=== PATIENT | male | born 1930 | race Caucasian/White ===

== ENCOUNTER 2019-01-01 03:38 | Emergency (ER) | payer OTHER ==
--- OUTSIDE RECORDS SUMMARY | 2019-01-01 03:40 | XMS REPORT | Clinical Summary ---
:1930 Author Organization [facility] Address [address] [place] [address] Care Team Providers Name Role Phone Donavon Trujillo MD Primary Care Provider Allergies Active Allergy Reactions Severity Noted Date Comments Zolpidem 10/05/2016 couldn't wake up for 18 hrs. Ciprofloxacin Rash Low 10/05/2016 Levofloxacin Rash Low 10/05/2016 Medications Medication Sig Dispensed Refills Start Date End Date Status nabumetone (RELAFEN) Take 750 mg by 0 Active 750 MG tablet mouth 2 (two) times a day. traMADol (ULTRAM) 50 Take 50 mg by mouth 0 Active mg tablet every 8 (eight) hours as needed for moderate pain. aspirin 325 MG tablet Take 325 mg by 0 Active mouth nightly. VIT Take 1 capsule by 0 Active C/E/ZN/COPPR/LUTEIN/Z mouth 2 (two) times EAXAN (PRESERVISION a day. AREDS 2 ORAL) melatonin tablet Take 3 mg by mouth 0 Active nightly. Active Problems Problem Noted Date DVT, lower extremity 10/07/2016 Dyspnea 10/05/2016 Hypertension 10/05/2016 Lymphoma 10/05/2016 Anemia of chronic disease 10/05/2016 Bilateral lower extremity edema 10/05/2016 Volume overload 10/05/2016 Anasarca 10/05/2016 Social History Tobacco Use Types Packs/Day Years Used Date Never Smoker Alcohol Use Drinks/Week oz/Week Comments No Sex Assigned at Date Recorded Not on file Job Start Date Occupation Industry Not on file Not on file Not on file Travel History Travel Start Travel End No recent travel history available. Last Filed Vital Signs Not on file Plan of Treatment Health Maintenance Due Date Last Done Comments SHINGLES VACCINES (1 of 2) 1981 PNEUMOCOCCAL-13 02/04/1996 INFLUENZA VACCINE 06/20/2018 09/29/2015 PNEUMOCOCCAL POLYSACCHARIDE VACCINE AGE 65 AND OVER Completed 09/29/2015 Results Not on fileafter 12/31/2017 Insurance Payer Benefit Plan / Group Subscriber ID Type Phone Address MEDICARE MEDICARE PART A AND B xxxxxxxxxx Medicare [place], [place] AETNA AETNA HMO,POS,EPO, MC/EC xxxxxxxxx HMO Advance Directives Patient has advance care planning documents on file. For more information, please contact:Wilmer [id number] [place] [address]
[2019-01-01] MEDS ORDERED: ONDANSETRON 4 MG/2 ML VIAL ONE (04:49)
[2019-01-01] MEDS ORDERED: FENTANYL CITR 100 MCG/2 ML ONE (04:49)
[2019-01-01] MEDS ORDERED: NA CHLORIDE 0.9% 500 ML ONE (04:49)
[2019-01-01] MEDS ORDERED: NA CHLORIDE 0.9% 1,000 ML ONE (04:51)
[2019-01-01] MEDS ORDERED: NA CHLORIDE 0.9% 50 ML IV ONE (04:51)
[2019-01-01] MEDS ORDERED: CEFTRIAXONE 1000 MG/VIAL ONE (04:51)
[2019-01-01 05:23] LABS: Absolute Lymphocytes (CBC) 0.9 K/uL (0.7-4.9); Absolute Monocytes 0.7 K/uL (0.1-1.3); Absolute Neutrophil 2.8 K/uL (1.8-8.0); Basophils % 0.8 % (0-1.3); Eosinophils % 4.7 % (0-4.4); Hematocrit 35.7 % (39.6-49.0); Lymphocytes % 19.8 % (15.3-44.8); MPV 8.9 fL (7.6-11.3); Monocytes % 15.5 % (3.3-12.3); RBC Red Blood Cell Count 3.96 M/uL (4.33-5.43)
[2019-01-01 05:54] LABS: Albumin 2.9 g/dL (3.4-5.0); Bilirubin Direct 0.3 mg/dL (0-0.2); Bilirubin Total 0.9 mg/dL (0.2-1.0); Potassium 3.3 mmol/L (3.5-5.1); Protein, Total 5.7 g/dL (6.4-8.2)
[2019-01-01 06:01] LABS: Blood Morphology Comment NOT SEEN (NOT SEEN); Platelet Estimate ADEQ
--- NOTE | 2019-01-01 06:20 | ER ---
Nurse's Notes [facility] Name: Celso Griffin Age: 88 yrs Sex: Male : 1930 Arrival Date: 01/01/2019 Time: 03:40 Bed 13 Private MD: Donavon Trujillo Diagnosis: Constipation;Diverticulosis of both small and large intestine without perforation or abscess without bleeding;Abdominal tenderness;Hypokalemia Presentation: 01/01 03:45 Presenting complaint: Patient states: right flank pain since yesterday. Transition of cc3 care: patient was not received from another setting of care. Onset of symptoms was December 31, 2018. Risk Assessment: Do you want to hurt yourself or someone else? Patient reports no desire to harm self or others. Initial Sepsis Screen: Does the patient meet any 2 criteria? No. Patient's initial sepsis screen is negative. Does the patient have a suspected source of infection? No. Patient's initial sepsis screen is negative. Care prior to arrival: None. 03:45 Method Of Arrival: Ambulatory cc3 03:45 Acuity: SAMUEL 3 cc3 Triage Assessment: 03:45 General: Appears in no apparent distress. comfortable, Behavior is calm, cooperative, cc3 appropriate for age. Pain: Complains of pain in right flank Pain currently is 2 out of 10 on a pain scale. Quality of pain is described as aching. EENT: No signs and/or symptoms were reported regarding the EENT system. Neuro: Level of Consciousness is awake, alert, obeys commands, Oriented to person, place, time, situation, Appropriate for age. Cardiovascular: Denies chest pain, Patient's skin is warm and dry. Respiratory: Airway is patent Respiratory effort is even, unlabored, Respiratory pattern is regular, symmetrical. GI: Abdomen is round non-distended. : No signs and/or symptoms were reported regarding the genitourinary system. Derm: No signs and/or symptoms reported regarding the dermatologic system. Musculoskeletal: Circulation, motion, and sensation intact. Range of motion: intact in all extremities. Historical: - Allergies: 03:45 ambien; cc3 03:45 Cipro PO; cc3 03:45 Levaquin; cc3 - Home Meds: 03:45 folic acid 1 mg Oral tab 1 tab once daily [Active]; furosemide 40 mg Oral tab 2 times cc3 per day [Active]; levothyroxine 50 mcg tab 1 tab once daily [Active]; melatonin 10 mg Oral tab [Active]; metoprolol tartrate 25 mg Oral tab 1 tab once daily [Active]; metoprolol tartrate 25 mg Oral tab take 1/2 tab in the morning and 1 tab in the evening [Active]; potassium chloride 20 mEq Oral TbER 1 tab Every other day [Active]; SYMBICORT COMBIVENT 160-4.5 [Active]; tramadol 50 mg Oral tab 1 tab every 4-6 hours for Pain [Active]; Tylenol #3 Oral 1 tab every 4-6 hours for NEEDED PAIN [Active]; valsartan 320 mg Oral tab 1 tab once daily [Active]; VITEYE [Active]; Xarelto 20 mg Oral tab 1 tab once daily [Active]; - PMHx: 03:45 blood clots; Hypertension; Hypothyroidism; LYMPHOMA; cc3 - PSHx: 03:45 right knee replacement; Tonsillectomy; cc3 - Immunization history:: Adult Immunizations up to date. - Social history:: Smoking status: Patient/guardian denies using tobacco, never smoked. - Ebola Screening: : No symptoms or risks identified at this time. - Family history:: not pertinent. Screenin:45 Abuse screen: Denies threats or abuse. Denies injuries from another. Nutritional cc3 screening: No deficits noted. Tuberculosis screening: No symptoms or risk factors identified. Fall Risk Ambulatory Aid- None/Bed Rest/Nurse Assist (0 pts). Gait- Normal/Bed Rest/Wheelchair (0 pts) Mental Status- Oriented to own ability (0 pts). Assessment: 03:45 GI: Bowel sounds present X 4 quads. Abd is soft and non tender. cc3 04:24 Reassessment: Patient appears in no apparent distress at this time. Patient and/or cc3 family updated on plan of care and expected duration. Pain level reassessed. Patient is alert, oriented x 3, equal unlabored respirations, skin warm/dry/pink. 05:30 Reassessment: Patient appears in no apparent distress at this time. Patient and/or cc3 family updated on plan of care and expected duration. Pain level reassessed. Patient is alert, oriented x 3, equal unlabored respirations, skin warm/dry/pink. Patient came back from CT scan department, awaiting CT scan result. 06:11 Reassessment: Patient appears in no apparent distress at this time. Patient and/or cc3 family updated on plan of care and expected duration. Pain level reassessed. Patient is alert, oriented x 3, equal unlabored respirations, skin warm/dry/pink. 06:55 Reassessment: Dr. Sanderson discharged the patient home with prescription given. IV cc3 cannula removed and patient left ER vitally stable and ambulatory with his . Vital Signs: 03:45 BP 155 / 75; Pulse 64; Resp 20 S; Temp 98.4(O); Pulse Ox 96% on R/A; Weight 91.63 kg cc3 (R); Height 5 ft. 10 in. (177.80 cm) (R); Pain 2/10; 04:30 BP 147 / 72; Pulse 60; Resp 18 S; Pulse Ox 96% on R/A; cc3 05:30 BP 167 / 79; Pulse 62; Resp 17 S; Pulse Ox 95% on R/A; cc3 06:11 BP 163 / 83; Pulse 62; Resp 16 S; Pulse Ox 95% on R/A; cc3 03:45 Body Mass Index 28.98 (91.63 kg, 177.80 cm) cc3 ED Course: 03:40 Patient arrived in ED. ds1 03:41 Donavon Trujillo MD is Private Physician. ds1 03:45 Ros Bro is Primary Nurse. cc3 03:45 Arm band placed on right wrist. Patient notified of wait time. cc3 03:45 Patient has correct armband on for positive identification. Bed in low position. Call cc3 light in reach. Side rails up X 1. Pulse ox on. NIBP on. 03:56 Jaren Sanderson MD is Attending Physician. corie 04:03 Triage completed. cc3 04:45 Inserted saline lock: 20 gauge in right antecubital area, using aseptic technique. cc3 Blood collected. 05:[address] via stretcher. kw1 05:15 CT completed. Patient tolerated procedure well. Patient moved back from CT. kw1 05:43 CT Stone Protocol In Process Unspecified. EDMS 06:17 Donavon Trujillo MD is Referral Physician. corie 06:17 Juani Pike MD is Referral Physician. corie 06:55 No provider procedures requiring assistance completed. IV discontinued, intact, cc3 bleeding controlled, No redness/swelling at site. Pressure dressing applied. Administered Medications: 04:45 Drug: NS 0.9% 500 ml Route: IV; Rate: bolus; Site: right antecubital; cc3 05:40 Follow up: Response: No adverse reaction; IV Status: Completed infusion; IV Intake: cc3 500ml 04:46 Drug: fentaNYL (PF) 25 mcg Route: IVP; Site: right antecubital; cc3 05:35 Follow up: Response: No adverse reaction; Pain is decreased cc3 05:00 Drug: Zofran 4 mg Route: IVP; Site: right antecubital; cc3 05:35 Follow up: Response: No adverse reaction; Nausea is decreased cc3 05:30 Drug: Rocephin - (cefTRIAXone) 1 grams Route: IVPB; Infused Over: 30 mins; Site: right cc3 antecubital; 06:01 Follow up: Response: No adverse reaction; IV Status: Completed infusion; IV Intake: 62pmkl0 05:50 Drug: NS 0.9% 1000 ml Route: IV; Rate: 125 ml/hr; Site: right antecubital; cc3 06:30 Drug: Potassium Effervescent Tablet 25 mEq Route: PO; cc3 06:39 Follow up: Response: No adverse reaction cc3 Intake: 05:40 IV: 500ml; Total: 500ml. cc3 06:01 IV: 50ml; Total: 550ml. cc3 Outcome: 06:19 Discharge ordered by . [facility] 06:55 Patient left the ED. cc3 06:55 Discharged to home ambulatory, with family. cc3 06:55 Condition: stable 06:55 Discharge instructions given to patient, family, Instructed on discharge instructions, follow up and referral plans. medication usage, Demonstrated understanding of instructions, follow-up care, medications, Prescriptions given X 5 Signatures: Dispatcher [employer] EDJaren Pham MD MD cha Sanford, Demi ds1 Wilhelm, Kimberly kw1 Ros Bro cc3 Corrections: (The following items were deleted from the chart) 05:12 05:11 Patient moved to [place] via wheelchair. kw1 kw1 06:14 05:30 BP 167 / 79; Pulse 62bpm; Resp 17bpm; Spontaneous; Pulse Ox 94% RA; cc3 cc3
--- NOTE | 2019-01-01 06:20 | EDPHYS ---
Physician Documentation [facility] Name: Celso Griffin Age: 88 yrs Sex: Male : 1930 Arrival Date: 01/01/2019 Time: 03:40 Bed 13 Private MD: Donavon Trujillo ED Physician Jaren Sanderson HPI: 01/01 04:26 This 88 yrs old Male presents to ER via Ambulatory with complaints of corie Possible Kidney Stone. 04:26 The patient complains of pain in the right mid back and right low back. The pain corie radiates to the right mid back and right low back. Onset: The symptoms/episode began/occurred 1 day(s) ago. Modifying factors: The symptoms are alleviated by nothing. The patient presents with pain that is acute, with no known mechanism of injury. The symptoms are located in the low back, right mid back and right low back. Onset: The symptoms/episode began/occurred yesterday. Historical: - Allergies: 03:45 ambien; cc3 03:45 Cipro PO; cc3 03:45 Levaquin; cc3 - Home Meds: 03:45 folic acid 1 mg Oral tab 1 tab once daily [Active]; furosemide 40 mg Oral tab 2 times cc3 per day [Active]; levothyroxine 50 mcg tab 1 tab once daily [Active]; melatonin 10 mg Oral tab [Active]; metoprolol tartrate 25 mg Oral tab 1 tab once daily [Active]; metoprolol tartrate 25 mg Oral tab take 1/2 tab in the morning and 1 tab in the evening [Active]; potassium chloride 20 mEq Oral TbER 1 tab Every other day [Active]; SYMBICORT COMBIVENT 160-4.5 [Active]; tramadol 50 mg Oral tab 1 tab every 4-6 hours for Pain [Active]; Tylenol #3 Oral 1 tab every 4-6 hours for NEEDED PAIN [Active]; valsartan 320 mg Oral tab 1 tab once daily [Active]; VITEYE [Active]; Xarelto 20 mg Oral tab 1 tab once daily [Active]; - PMHx: 03:45 blood clots; Hypertension; Hypothyroidism; LYMPHOMA; cc3 - PSHx: 03:45 right knee replacement; Tonsillectomy; cc3 - Immunization history:: Adult Immunizations up to date. - Social history:: Smoking status: Patient/guardian denies using tobacco, never smoked. - Ebola Screening: : No symptoms or risks identified at this time. - Family history:: not pertinent. ROS: 04:26 Constitutional: Negative for fever, chills, and weight loss, Eyes: Negative for injury, corie pain, redness, and discharge, ENT: Negative for injury, pain, and discharge, Neck: Negative for injury, pain, and swelling, Cardiovascular: Negative for chest pain, palpitations, and edema, Respiratory: Negative for shortness of breath, cough, wheezing, and pleuritic chest pain, Abdomen/GI: Negative for abdominal pain, nausea, vomiting, diarrhea, and constipation, : Negative for injury, bleeding, discharge, and swelling, MS/Extremity: Negative for injury and deformity, Skin: Negative for injury, rash, and discoloration, Neuro: Negative for headache, weakness, numbness, tingling, and seizure. 04:26 Back: Positive for pain at rest, radiated pain. Exam: 04:26 Constitutional: This is a well developed, well nourished patient who is awake, alert, corie and in no acute distress. Head/Face: Normocephalic, atraumatic. Eyes: Pupils equal round and reactive to light, extra-ocular motions intact. Lids and lashes normal. Conjunctiva and sclera are non-icteric and not injected. Cornea within normal limits. Periorbital areas with no swelling, redness, or edema. ENT: Nares patent. No nasal discharge, no septal abnormalities noted. Tympanic membranes are normal and external auditory canals are clear. Oropharynx with no redness, swelling, or masses, exudates, or evidence of obstruction, uvula midline. Mucous membranes moist. Neck: Trachea midline, no thyromegaly or masses palpated, and no cervical lymphadenopathy. Supple, full range of motion without nuchal rigidity, or vertebral point tenderness. No Meningismus. Chest/axilla: Normal chest wall appearance and motion. Nontender with no deformity. No lesions are appreciated. Cardiovascular: Regular rate and rhythm with a normal S1 and S2. No gallops, murmurs, or rubs. Normal PMI, no JVD. No pulse deficits. Respiratory: Lungs have equal breath sounds bilaterally, clear to auscultation and percussion. No rales, rhonchi or wheezes noted. No increased work of breathing, no retractions or nasal flaring. Abdomen/GI: Soft, non-tender, with normal bowel sounds. No distension or tympany. No guarding or rebound. No evidence of tenderness throughout. Back: No spinal tenderness. No costovertebral tenderness. Full range of motion. Male : Normal genitalia with no discharge or lesions. Skin: Warm, dry with normal turgor. Normal color with no rashes, no lesions, and no evidence of cellulitis. MS/ Extremity: Pulses equal, no cyanosis. Neurovascular intact. Full, normal range of motion. Neuro: Awake and alert, GCS 15, oriented to person, place, time, and situation. Cranial nerves II-XII grossly intact. Motor strength 5/5 in all extremities. Sensory grossly intact. Cerebellar exam normal. Normal gait. Psych: Awake, alert, with orientation to person, place and time. Behavior, mood, and affect are within normal limits. Vital Signs: 03:45 BP 155 / 75; Pulse 64; Resp 20 S; Temp 98.4(O); Pulse Ox 96% on R/A; Weight 91.63 kg cc3 (R); Height 5 ft. 10 in. (177.80 cm) (R); Pain 2/10; 04:30 BP 147 / 72; Pulse 60; Resp 18 S; Pulse Ox 96% on R/A; cc3 05:30 BP 167 / 79; Pulse 62; Resp 17 S; Pulse Ox 95% on R/A; cc3 06:11 BP 163 / 83; Pulse 62; Resp 16 S; Pulse Ox 95% on R/A; cc3 03:45 Body Mass Index 28.98 (91.63 kg, 177.80 cm) cc3 MDM: 03:56 Patient medically screened. [facility] 04:28 Data reviewed: vital signs, nurses notes, lab test result(s), radiologic studies, CT corie scan. 01/01 04:30 Order name: Basic Metabolic Panel; Complete Time: 06:13 [facility] 01/01 04:30 Order name: CBC with Diff; Complete Time: 06:13 [facility] 01/01 04:30 Order name: Creatinine for Radiology; Complete Time: 06:13 [facility] 01/01 04:30 Order name: Hepatic Function; Complete Time: 06:13 [facility] 01/01 04:30 Order name: Lipase; Complete Time: 06:13 [facility] 01/01 04:30 Order name: Urine Culture [facility] 01/01 04:30 Order name: CT Stone Protocol [facility] 01/01 05:30 Order name: Manual Differential; Complete Time: 06:13 EDMS 01/01 06:05 Order name: Urine Dipstick--Ancillary (enter results) 2 01/01 04:30 Order name: IV Saline Lock; Complete Time: 05:10 [facility] 01/01 04:30 Order name: Labs collected and sent; Complete Time: 05:10 [facility] 01/01 04:30 Order name: Urine Dipstick-Ancillary (obtain specimen); Complete Time: 06:02 [facility] Administered Medications: 04:45 Drug: NS 0.9% 500 ml Route: IV; Rate: bolus; Site: right antecubital; cc3 05:40 Follow up: Response: No adverse reaction; IV Status: Completed infusion; IV Intake: cc3 500ml 04:46 Drug: fentaNYL (PF) 25 mcg Route: IVP; Site: right antecubital; cc3 05:35 Follow up: Response: No adverse reaction; Pain is decreased cc3 05:00 Drug: Zofran 4 mg Route: IVP; Site: right antecubital; cc3 05:35 Follow up: Response: No adverse reaction; Nausea is decreased cc3 05:30 Drug: Rocephin - (cefTRIAXone) 1 grams Route: IVPB; Infused Over: 30 mins; Site: right cc3 antecubital; 06:01 Follow up: Response: No adverse reaction; IV Status: Completed infusion; IV Intake: [id number] 05:50 Drug: NS 0.9% 1000 ml Route: IV; Rate: 125 ml/hr; Site: right antecubital; cc3 06:30 Drug: Potassium Effervescent Tablet 25 mEq Route: PO; cc3 06:39 Follow up: Response: No adverse reaction cc3 Disposition: 01/01/19 06:19 Discharged to Home. Impression: Constipation, Diverticulosis of both small and large intestine without perforation or abscess without bleeding, Abdominal tenderness, Hypokalemia. - Condition is Stable. - Discharge Instructions: Abdominal Pain, Adult, Constipation, Adult, Potassium Content of Foods, Diverticulosis, Kidney Stones, Constipation, Adult, Oemv-dx-Wrbg, Kidney Stones, Heog-ih-Hdkx, Abdominal Pain, Adult, Fzlu-jr-Jajq, Hypokalemia. - Prescriptions for Colace 100 mg Oral Tablet - take 1 tablet by ORAL route every 12 hours; 14 tablet. Zofran 4 mg Oral Tablet - take 1 tablet by ORAL route every 12 hours As needed; 20 tablet. Flomax 0.4 mg Oral Capsule, Sust. Release 24 hr - take 1 capsule by ORAL route once daily 1/2 hour following the same meal each day; 30 capsule. Bactrim DS 800- 160 mg Oral Tablet - take 1 tablet by ORAL route every 12 hours for 5 days; 10 tablet. Tylenol- Codeine #3 300-30 mg Oral Tablet - take 2 tablets by ORAL route every 6 hours As needed; 20 tablet. - Medication Reconciliation Form, Thank You Letter, Antibiotic Education, Prescription Opioid Use form. - Follow up: Donavon Trujillo MD; When: 2 - 3 days; Reason: Recheck today's complaints, Continuance of care, Re-evaluation by your physician. Follow up: Juani Pike MD; When: 2 - 3 days; Reason: Recheck today's complaints, Re-evaluation by your physician. - Problem is new. - Symptoms have improved. Signatures: Dispatcher [employer] EDJaren Pham MD MD cha Cordel, Charlene cc3 Corrections: (The following items were deleted from the chart) 06:24 06:19 01/01/2019 06:19 Discharged to Home. Impression: Constipation; Diverticulosis of corie both small and large intestine without perforation or abscess without bleeding; Abdominal tenderness. Condition is Stable. Forms are Medication Reconciliation Form, Thank You Letter, Antibiotic Education, Prescription Opioid Use. Follow up: Donavon Trujillo; When: 2 - 3 days; Reason: Recheck today's complaints, Continuance of care, Re-evaluation by your physician. Follow up: Juani Pike; When: 2 - 3 days; Reason: Recheck today's complaints, Re-evaluation by your physician. Problem is new. Symptoms have improved. corie 06:55 06:24 01/01/2019 06:19 Discharged to Home. Impression: Constipation; Diverticulosis of cc3 both small and large intestine without perforation or abscess without bleeding; Abdominal tenderness; Hypokalemia. Condition is Stable. Discharge Instructions: Abdominal Pain, Adult, Constipation, Adult, Diverticulosis, Kidney Stones, Constipation, Adult, Czdo-jf-Nsen, Kidney Stones, Tivo-ly-Dckt, Abdominal Pain, Adult, Qvao-lx-Jthi, Hypokalemia. Prescriptions for Colace 100 mg Oral Tablet - take 1 tablet by ORAL route every 12 hours; 14 tablet, Zofran 4 mg Oral Tablet - take 1 tablet by ORAL route every 12 hours As needed; 20 tablet, Flomax 0.4 mg Oral Capsule, Sust. Release 24 hr - take 1 capsule by ORAL route once daily 1/2 hour following the same meal each day; 30 capsule, Bactrim DS 800-160 mg Oral Tablet - take 1 tablet by ORAL route every 12 hours for 5 days; 10 tablet. and Forms are Medication Reconciliation Form, Thank You Letter, Antibiotic Education, Prescription Opioid Use. Follow up: Donavon Trujillo; When: 2 - 3 days; Reason: Recheck today's complaints, Continuance of care, Re-evaluation by your physician. Follow up: Juani Pike; When: 2 - 3 days; Reason: Recheck today's complaints, Re-evaluation by your physician. Problem is new. Symptoms have improved. corie
[2019-01-01] MEDS ORDERED: POTASSIUM 25 MEQ EFFERV TAB ONE (06:29)
[2019-01-01 07:01] VITALS: TEMP 98.4
[2019-01-01 07:04] VITALS: O2SAT 95
[2019-01-01 07:05] VITALS: BP 163/83
[2019-01-01 07:50] LABS: Urine Blood NEGATIVE (NEG); Urine Glucose NEGATIVE (NEG); Urine Protein NEGATIVE (NEG); Urine Specific Gravity 1.025 (1.005-1.030)
--- NOTE | 2019-01-01 14:28 | RAD REPORT ---
EXAM DESCRIPTION: CT Abdomen and Pelvis Without Intravenous Contrast CLINICAL HISTORY: The patient is 88 years old and is Male; Abd pain; Flank pain COMPARISON: CT of the abdomen and pelvis January 09, 2018. TECHNIQUE: Axial computed tomography images of the abdomen and pelvis without intravenous contrast. Sagittal and coronal reformatted images were created and reviewed. This CT exam was performed using one or more of the following dose reduction techniques: Automated exposure control, adjustment of the mA and/or kV according to patient size, and/or use of iterative reconstruction technique. FINDINGS: Lung bases: Scarring within the lung bases is noted. ABDOMEN: Liver: The liver is prominent. Gallbladder and bile ducts: No calcified stones. No ductal dilation. Pancreas: Fatty infiltration of the pancreas is present. Previously demonstrated low attenuating lesi on within the mid body of the pancreas measuring 2.4 x 2.1 cmis noted and unchanged. No ductal dilation. Spleen: Unremarkable. Adrenals: Unremarkable. No mass. Kidneys and ureters: Left intrarenal calcification is present. Exophytic right renal cysts are noted, the largest of which measures approximately 4.9 cm. No follow-up is necessary. No obstructing renal or ureteral calculus is seen. Stomach and bowel: The stomach is decompressed. The small bowel is normal in caliber. A moderate amou nt of stool is present throughout colon. No evidence of bowel obstruction. No significant bowel wall thickening. Colonic diverticulosis is noted, without associated inflammatory changes to suggest diver ticulitis. PELVIS: Appendix: The appendix is normal in caliber without surrounding inflammation. Bladder: Unremarkable. No stones. Reproductive:Unremarkable as visualized. ABDOMEN and PELVIS: Intraperitoneal space: Unremarkable. No free air. No significant fluid collection. Bones/joints: No acute fracture. Soft tissues: There are small bilateral fat containing inguinal hernias. Vasculature: Atherosclerosis of the vasculature is present. The vessels are normal in course and james iber. An infrarenal IVC filter is in place. No abdominal aortic aneurysm. Lymph nodes: Unremarkable. No enlarged lymph nodes. IMPRESSION: 1. Colonic diverticulosis without evidence of diverticulitis. 2. Left nephrolithiasis without obstruction. 3. No change in the well defined low attenuating lesion within the body of the pancreas. While findin gs may be secondary to a pseudocyst, cystic neoplasm is within the differential. Further evaluation/f ollow-up is recommended. Electronically signed by Swati Jara MD 01/01/2019 5:46 PM [employer] Due to temporary technical issues with the PACS/Fluency reporting system, reports are being signed by the in house radiologist as a courtesy to ensure prompt reporting. The interpreting radiologist is f ully responsible for the content of the report.
== END 2019-01-01 06:55 | disposition home or self-care (01) ==
LOC: ER 03:38
DX: K57.10 Diverticulosis of small intestine without perforation or abscess without bleeding (principal); K57.30 Diverticulosis of large intestine without perforation or abscess without bleeding; K59.00 Constipation, unspecified; E87.6 Hypokalemia; I10 Essential (primary) hypertension; E03.9 Hypothyroidism, unspecified; Z79.01 Long term (current) use of anticoagulants; Z88.1 Allergy status to other antibiotic agents; Z88.8 Allergy status to other drugs, medicaments and biological substances; Z85.72 Personal history of non-Hodgkin lymphomas
CPT/HCPCS: 36415; 74176; 76377; 80048; 80076; 81003; 83690; 85025; 87086; 87088; J2405; J3010; J7030; 96361; 96365; 96375; 99284

== ENCOUNTER 2020-04-12 04:02 | Emergency (ER) | payer OTHER ==
--- OUTSIDE RECORDS SUMMARY | 2020-04-12 04:04 | XMS REPORT | Clinical Summary ---
:1930 Author Organization [facility] Address [address] [place] [address] Care Team Providers Name Role Phone Ja Trujillo MD Primary Care Provider Allergies Active Allergy Reactions Severity Noted Date Comments Zolpidem 10/05/2016 couldn't wake u p for 18 hrs. Ciprofloxacin Rash Low 10/05/2016 [...] nightly. VIT Take 1 capsule by 0 Ac tive C/E/ZN/COPPR/LUTEIN/Z mouth 2 (two) times EAXAN (PRESERVISION [...] Due Date Last Done Comments SHINGLES VACCINES (#1) 1981 65+ PNEUMOCOCCAL VACCINE (2 of 2 - PPSV23) 02/04/199609/29 INFLUENZA VACCINE 06/20/2020 09/29/2015 Results Not on fileafter 04/12/2019 Insurance Payer Benefit Plan / Subscriber ID Effective Dates Phone Addre ss Type Group MEDICARE MEDICARE PART A xxxxxxxxxx 1996-Present SEBASTIEN MONET Medicare AND B AETNA AETNA HMO,POS,EPO, xxxxxxxxx 2000-Present HMO MC/EC Advance Directives For more information, please contact: [phone] Type Date Recorded Patient Linux Developer Explanati on Advance Directives, Living Will 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
[2020-04-12 06:14] LABS: Absolute Lymphocytes (CBC) 1.3 K/uL (0.7-4.9); Lymphocytes % 17.7 % (15.3-44.8); MPV 8.4 fL (7.6-11.3)
[2020-04-12 06:44] LABS: ALT/SGPT 20 U/L (12-78); AST/SGOT 18 U/L (15-37); Albumin 3.3 g/dL (3.4-5.0); Alkaline Phosphatase 97 U/L (45-117); BUN Blood Urea Nitrogen 15 mg/dL (7-18); Bicarbonate 30 mmol/L (21-32); Bilirubin Direct 0.2 mg/dL (0-0.2); Bilirubin Total 0.8 mg/dL (0.2-1.0); Glucose Level 108 mg/dL (74-106); Magnesium 2.5 mg/dL (1.8-2.4); NT PRO-BNP 2542 pg/mL (<450); Potassium 3.7 mmol/L (3.5-5.1); Sodium Level 142 mmol/L (136-145); Troponin (Emerg Dept Use Only) < 0.02 ng/mL (0.0-0.045)
--- NOTE | 2020-04-12 07:17 | ER ---
Nurse's Notes [facility] Name: Celso Griffin Age: 89 yrs Sex: Male : 1930 Arrival Date: 04/12/2020 Time: 04:05 Bed 6 Private MD: Diagnosis: Dyspnea;Palpitations;Atrial fibrillation and flutter-RVR Presentation: 04/12 04:44 Chief complaint: Patient states: Has been having blood pressure issues for months, seen lp1 by Armature Bander this week on and had Echo, EKG, and monitor for 48 hours; States checking BP last night and heart rate was 120; Denies feeling bad, called quality tech and told to come to ER; States having some shortness of breath. Coronavirus screen: Proceed with normal triage. Ebola Screen: No symptoms or risks identified at this time. Risk Assessment: Do you want to hurt yourself or someone else? Patient reports no desire to harm self or others. Onset of symptoms was April 12, 2020. 04:44 Method Of Arrival: Wheelchair lp1 05:02 Initial Sepsis Screen: Does the patient meet any 2 criteria? HR > 90 bpm. Does the lp1 patient have a suspected source of infection? No. Patient's initial sepsis screen is negative. 05:02 Acuity: SAMUEL 3 lp1 Historical: - Allergies: 04:48 ambien; lp1 04:48 Cipro PO; lp1 04:48 Levaquin; lp1 - PMHx: 04:48 blood clots; Hypertension; Hypothyroidism; LYMPHOMA; lp1 - PSHx: 04:48 Tonsillectomy; lp1 - Immunization history:: Adult Immunizations up to date. - Social history:: Smoking status: Patient denies any tobacco usage or history of. Screenin:02 Abuse screen: Denies threats or abuse. Denies injuries from another. Nutritional lp1 screening: No deficits noted. Tuberculosis screening: No symptoms or risk factors identified. Assessment: 05:00 General: Appears in no apparent distress. comfortable, Behavior is calm, cooperative, rr5 appropriate for age. Pain: Denies pain. Neuro: Level of Consciousness is awake, alert, obeys commands, Oriented to person, place, time, situation, Appropriate for age. Cardiovascular: Reports high HR and BP Capillary refill < 3 seconds Patient's skin is warm and dry. 05:00 Respiratory: Airway is patent Respiratory effort is even, unlabored, Respiratory rr5 pattern is regular, symmetrical, tachypnea. GI: No signs and/or symptoms were reported involving the gastrointestinal system. : No signs and/or symptoms were reported regarding the genitourinary system. EENT: No signs and/or symptoms were reported regarding the EENT system. Derm: Skin is fragile, is thin, Skin temperature is warm. Musculoskeletal: Circulation, motion, and sensation intact. Capillary refill < 3 seconds. 06:00 Reassessment: Patient appears in no apparent distress at this time. No changes from rr5 previously documented assessment. Patient and/or family updated on plan of care and expected duration. Pain level reassessed. Patient is alert, oriented x 3, equal unlabored respirations, skin warm/dry/pink. awaiting for results. 07:30 Reassessment: Patient appears in no apparent distress at this time. Patient is alert, rr5 oriented x 3, equal unlabored respirations, skin warm/dry/pink. patient refused to take any medication. ED provider aware. 07:50 Reassessment: states he does not want to go to [facility] by ambulance due to cost, em wants his son to take pt to [facility], Dr. Sanderson at bedside discussing benefits of being transferred, pt wants to speak directly to quality tech so he can get transferred without going by ambulance, pt is given the [facility] number, pt refuses to sign transfer form. 08:10 Reassessment: report given to CAITLIN Shankar at [facility], informed her that pt may or may em not go by ambulance, spoke with Yazmin at the transfer center and was informed that per transfer protocol, pt has to go to via ambulance or would have to sign out AMA and drive to [facility] and wait in the ER for a room, also spoke with pt son and informed him of current situation, pt and son will discuss what they will do. 08:50 Reassessment: pt agrees to the transfer, pt signed transfer form, pending EMS em transportation. 09:35 Reassessment: Patient appears in no apparent distress at this time. Patient and/or em family updated on plan of care and expected duration. Pain level reassessed. Patient is alert, oriented x 3, equal unlabored respirations, skin warm/dry/pink. report given to EMS. Vital Signs: 05:02 BP 123 / 85; Pulse 124; Resp 20; Temp 98.4(O); Pulse Ox 97% on R/A; Weight 91.17 kg lp1 (R); Height 5 ft. 11 in. (180.34 cm); Pain 0/10; 06:00 BP 116 / 84; Pulse 113; Resp 26; Pulse Ox 98% ; rr5 07:00 BP 145 / 128; Pulse 120; Resp 25; Pulse Ox 99% ; rr5 08:00 BP 161 / 104; Pulse 120; Resp 28; Temp 97.8; Pulse Ox 99% on R/A; Pain 0/10; rr5 05:02 Body Mass Index 28.03 (91.17 kg, 180.34 cm) lp1 ED Course: 04:05 Patient arrived in ED. cl3 04:44 Jaren Sanderson MD is Attending Physician. corei 04:46 Arm band placed on left wrist. lp1 05:02 Triage completed. lp1 05:15 Tono Mcdaniel, RN is Primary Nurse. rr5 05:26 XRAY Chest (1 view) In Process Unspecified. EDMS 05:50 Inserted saline lock: 20 gauge in right forearm, using aseptic technique. Blood rr5 collected. 07:13 EKG done, by ED staff, reviewed by Jaren Sanderson MD. 3 09:09 No provider procedures requiring assistance completed. Patient transferred, IV remains em in place. Administered Medications: 08:10 Not Given (Patient Refused; pt wants only his quality tech to prescribe his em medicationi): Lopressor 25 mg PO once 08:10 Not Given (Patient Refused; pt wants only his quality tech to prescribe his em medicationion): Lopressor 2.5 mg IVP once; Hold for SBP <100 or HR <60. 08:11 Not Given (Patient Refused; pt wants only his quality tech to prescribe his em medication): Lopressor 2.5 mg IVP once; Hold for SBP <100 or HR <60. Outcome: 07:16 ER care complete, transfer ordered by . corie 09:09 Transferred by ground EMS to [facility], Transfer form completed. X-rays em sent w/ patient. 09:09 Condition: good 09:09 Instructed on the need for transfer, Demonstrated understanding of instructions. 09:47 Patient left the ED. em Signatures: Dispatcher [employer] Jaren Horn MD MD cha Munoz, Edgar RN RN em Savi Comer RN RN 1 January Urias 3 Tono Mcdaniel RN RN rr5 Luna Pak cl3 Corrections: (The following items were deleted from the chart) 08:28 08:00 BP 161 / 104; Pulse 120bpm; Resp 20bpm; Pulse Ox 99% RA; em rr5
--- NOTE | 2020-04-12 07:18 | EDPHYS ---
Physician Documentation [facility] Name: Celso Griffin Age: 89 yrs Sex: Male : 1930 Arrival Date: 04/12/2020 Time: 04:05 Bed 6 Private MD: ED Physician Jaren Sanderson HPI: 04/12 05:29 This 89 yrs old Male presents to ER via Wheelchair with complaints of FAST corie HEART RATE. 05:29 The patient has elevated blood pressure and discovered this at home. Onset: The corie symptoms/episode began/occurred just prior to arrival, this morning. Modifying factors: The symptoms are aggravated by activity, The symptoms are alleviated by remaining still. Severity of symptoms: At its worst the blood pressure was mild, in the emergency department the blood pressure is. 05:33 Associated signs and symptoms: Pertinent positives: lightheadedness. The patient has corie not experienced similar symptoms in the past. Historical: - Allergies: 04:48 ambien; lp1 04:48 Cipro PO; lp1 04:48 Levaquin; lp1 - PMHx: 04:48 blood clots; Hypertension; Hypothyroidism; LYMPHOMA; lp1 - PSHx: 04:48 Tonsillectomy; lp1 - Immunization history:: Adult Immunizations up to date. - Social history:: Smoking status: Patient denies any tobacco usage or history of. ROS: 05:34 Constitutional: Negative for fever, chills, and weight loss, Eyes: Negative for injury, corie pain, redness, and discharge, ENT: Negative for injury, pain, and discharge, Neck: Negative for injury, pain, and swelling, Abdomen/GI: Negative for abdominal pain, nausea, vomiting, diarrhea, and constipation, Back: Negative for injury and pain, : Negative for injury, bleeding, discharge, and swelling, MS/Extremity: Negative for injury and deformity, Skin: Negative for injury, rash, and discoloration, Neuro: Negative for headache, weakness, numbness, tingling, and seizure, Psych: Negative for depression, anxiety, suicide ideation, homicidal ideation, and hallucinations, Allergy/Immunology: Negative for hives, rash, and allergies, Endocrine: Negative for neck swelling, polydipsia, polyuria, polyphagia, and marked weight changes, Hematologic/Lymphatic: Negative for swollen nodes, abnormal bleeding, and unusual bruising. 05:34 Cardiovascular: Positive for palpitations. 05:34 Respiratory: Positive for shortness of breath, at rest. Exam: 05:34 Constitutional: This is a well developed, well nourished patient who is awake, alert, corie and in no acute distress. Head/Face: Normocephalic, atraumatic. Eyes: Pupils equal round and reactive to light, extra-ocular motions intact. Lids and lashes normal. Conjunctiva and sclera are non-icteric and not injected. Cornea within normal limits. Periorbital areas with no swelling, redness, or edema. ENT: Nares patent. No nasal discharge, no septal abnormalities noted. Tympanic membranes are normal and external auditory canals are clear. Oropharynx with no redness, swelling, or masses, exudates, or evidence of obstruction, uvula midline. Mucous membranes moist. Neck: Trachea midline, no thyromegaly or masses palpated, and no cervical lymphadenopathy. Supple, full range of motion without nuchal rigidity, or vertebral point tenderness. No Meningismus. Chest/axilla: Normal chest wall appearance and motion. Nontender with no deformity. No lesions are appreciated. Abdomen/GI: Soft, non-tender, with normal bowel sounds. No distension or tympany. No guarding or rebound. No evidence of tenderness throughout. Back: No spinal tenderness. No costovertebral tenderness. Full range of motion. Male : Normal genitalia with no discharge or lesions. Skin: Warm, dry with normal turgor. Normal color with no rashes, no lesions, and no evidence of cellulitis. MS/ Extremity: Pulses equal, no cyanosis. Neurovascular intact. Full, normal range of motion. Neuro: Awake and alert, GCS 15, oriented to person, place, time, and situation. Cranial nerves II-XII grossly intact. Motor strength 5/5 in all extremities. Sensory grossly intact. Cerebellar exam normal. Normal gait. Psych: Awake, alert, with orientation to person, place and time. Behavior, mood, and affect are within normal limits. 05:34 Cardiovascular: Rate: tachycardic, Rhythm: regular, Pulses: Pulses are 4+ in bilateral radial, brachial, femoral, popliteal, posterior tibial and and dorsalis pedis arteries.. Heart sounds: normal, Edema: is not appreciated, JVD: is not appreciated. 05:34 Respiratory: mild respiratory distress is noted, Respirations: labored breathing, that is mild, PT STATES NORMAL, Breath sounds: decreased breath sounds, that are mild, are scattered, Respiratory rate: 24 06:45 ECG was reviewed by the Attending Physician. corie 06:51 Musculoskeletal/extremity: Extremities: all appear grossly normal, with no appreciated corie pain with palpation, ROM: intact in all extremities, full active range of motion, full passive range of motion, Circulation is intact in all extremities. Sensation intact. Compartment Syndrome exam of affected extremity: is normal. DVT Exam: No signs of deep vein thrombosis. no pain, no swelling, no tenderness, negative Homans' sign noted on exam, no appreciated bluish discoloration, no erythema, no increased warmth. 07:16 ECG was reviewed by the Attending Physician. corie 07:26 Chest/axilla: Inspection: normal, Palpation: is normal, Axilla: are normal, no acute corie changes, Lymph nodes: lymphadenopathy is not appreciated. 07:26 Cardiovascular: JVD: Vital Signs: 05:02 BP 123 / 85; Pulse 124; Resp 20; Temp 98.4(O); Pulse Ox 97% on R/A; Weight 91.17 kg lp1 (R); Height 5 ft. 11 in. (180.34 cm); Pain 0/10; 06:00 BP 116 / 84; Pulse 113; Resp 26; Pulse Ox 98% ; rr5 07:00 BP 145 / 128; Pulse 120; Resp 25; Pulse Ox 99% ; rr5 08:00 BP 161 / 104; Pulse 120; Resp 28; Temp 97.8; Pulse Ox 99% on R/A; Pain 0/10; rr5 05:02 Body Mass Index 28.03 (91.17 kg, 180.34 cm) lp1 MDM: 05:10 Patient medically screened. corie 05:36 Data reviewed: vital signs, nurses notes, lab test result(s), EKG, radiologic studies, [facility] plain films. 07:33 Differential diagnosis: arrythmia, dehydration. 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 Test interpretation: by ED physician or midlevel provider: ECG, plain radiologic studies. Counseling: I had a detailed discussion with the patient and/or guardian regarding: the historical points, exam findings, and any diagnostic results supporting the discharge/admit diagnosis, the presence of at least one elevated blood pressure reading (>120/80) during this emergency department visit, lab results, radiology results, the need to transfer to another facility, PT DR OJEDA IS AT [facility] AND HE WANT NO MEDS TO BE GIVEN TO HIM HERE. Physician consultation:. Awaiting: transfer to another facility. ED course: PT REMAINS IN A FIB RVR, HEMODYNAMICALLY STABLE, DW DR OJEDA, IS WILLING TO ACCEPT THIS PATIENT. PATIENT AGREES. TRANSFER IN PROGRESS. 04/12 05:09 Order name: Basic Metabolic Panel; Complete Time: 06:46 [facility] 04/12 05:09 Order name: CBC with Diff; Complete Time: 06:43 [facility] 04/12 05:09 Order name: LFT's; Complete Time: 06:46 04/12 05:09 Order name: Magnesium; Complete Time: 06:46 [facility] 04/12 05:09 Order name: NT PRO-BNP; Complete Time: 06:46 [facility] 04/12 05:09 Order name: Troponin (emerg Dept Use Only); Complete Time: 06:46 04/12 05:09 Order name: XRAY Chest (1 view) [facility] 04/12 05:09 Order name: EKG; Complete Time: 05:11 [facility] 04/12 05:09 Order name: Cardiac monitoring; Complete Time: 05:35 corie 04/12 05:09 Order name: TSH; Complete Time: 06:46 [facility] 04/12 07:04 Order name: EKG; Complete Time: 07:04 04/12 05:09 Order name: EKG - Nurse/Tech; Complete Time: 05:35 04/12 05:09 Order name: IV Saline Lock; Complete Time: 06:04 04/12 05:09 Order name: Labs collected and sent; Complete Time: 06:04 [facility] 04/12 05:09 Order name: O2 Per Protocol; Complete Time: 05:35 corie 04/12 05:09 Order name: O2 Sat Monitoring; Complete Time: 05:35 corie 04/12 07:04 Order name: EKG - Nurse/Tech; Complete Time: 07:14 [facility] EC:45 Rate is 122 beats/min. Rhythm is regular. QRS [place] is Normal. NC interval is normal. corie QRS interval is normal. QT interval is normal. No Q waves. T waves are Normal. No ST changes noted. Clinical impression: Sinus tachycardia. Interpreted by me. Reviewed by me. 07:16 Rate is 111 beats/min. Rhythm is irregularly irregular. QRS [place] is Normal. NC interval corie is normal. QRS interval is normal. QT interval is normal. No Q waves. T waves are Normal. No ST changes noted. Clinical impression: Atrial Fibrillation. Administered Medications: 08:10 Not Given (Patient Refused; pt wants only his franchise sales representative to prescribe his em medicationi): Lopressor 25 mg PO once 08:10 Not Given (Patient Refused; pt wants only his franchise sales representative to prescribe his em medicationion): Lopressor 2.5 mg IVP once; Hold for SBP <100 or HR <60. 08:11 Not Given (Patient Refused; pt wants only his franchise sales representative to prescribe his em medication): Lopressor 2.5 mg IVP once; Hold for SBP <100 or HR <60. Disposition: 04/12/20 07:16 Transfer ordered to [facility]. Diagnosis are Dyspnea, Palpitations, Atrial fibrillation and flutter - RVR. - Reason for transfer: Higher level of care. - Accepting physician is to ioana linda. - Condition is Fair. - Problem is new. - Symptoms have improved. Signatures: Dispatcher [employer] Jaren Horn MD MD cha Munoz, Edgar, RN RN Savi Sunshine RN RN lp1 Corrections: (The following items were deleted from the chart) 09:47 07:16 04/12/2020 07:16 Transfer ordered to [facility]. Diagnosis is Dyspnea; em Palpitations; Atrial fibrillation and flutter - RVR. Reason for transfer: Higher level of care. Accepting physician is to ioana linda. Condition is Fair. Problem is new. Symptoms have improved. corie
[2020-04-12] MEDS ORDERED: METOPROLOL TARTRATE 5 MG/5 ML INJ IV ONE (07:36)
[2020-04-12] MEDS ORDERED: METOPROLOL TAR 25 MG TAB ONE (07:36)
[2020-04-12 10:00] VITALS: O2SAT 99
[2020-04-12 10:01] VITALS: BP 161/104; TEMP 97.8
--- NOTE | 2020-04-12 11:38 | RAD REPORT ---
EXAM DESCRIPTION: RAD - Chest Single View - 04/12/2020 5:26 am CLINICAL HISTORY: Cough;Palpitations COMPARISON: Two view chest March 2019 TECHNIQUE: AP portable chest image was obtained 04/12/2020 5:26 am . FINDINGS: Lungs are clear. Heart and vasculature are normal. No measurable pleural effusion and no p neumothorax. No acute bony abnormality seen. No acute aortic findings suspected. IMPRESSION: No acute cardiopulmonary process. No significant change from comparison.
--- NOTE | 2020-04-13 08:55 | EKG ---
Test Date: 2020-04-12 Test Time: 07:11:24 [employer]iph[employer] Operator: KATARINA MEASUREMENT RESULTS: Intervals: Rate: 111 [place]: QRSD: 82 QT: 296 QTc: 402 [place]: P: [place]: QRS: -26 T: 58 INTERPRETIVE STATEMENTS: Atrial fibrillation with rapid ventricular response with premature ventricular or aberrantly conducted complexes Abnormal ECG Compared to ECG 04/12/2020 05:29:43 Ventricular premature complex(es) now present Sinus tachycardia no longer present Electronically Signed On 04-13-20 08:53:00 CDT by Rock Zuniga
--- NOTE | 2020-04-13 08:55 | EKG ---
Test Date: 2020-04-12 Test Time: 05:29:43 Veneer Marker: DUDLEY MEASUREMENT RESULTS: Intervals: Rate: 122 [place]: 122 QRSD: 86 QT: 328 QTc: 467 [place]: P: 95 [place]: 122 QRS: -20 T: 57 INTERPRETIVE STATEMENTS: afib with rvr Compared to ECG 01/09/2018 04:49:00 Sinus rhythm no longer present Electronically Signed On 04-13-20 08:53:49 CDT by Rock Zuniga
== END 2020-04-12 09:47 | disposition short-term general hospital (02) ==
LOC: ER 04:02
DX: I48.20 Chronic atrial fibrillation, unspecified (principal); I48.92 Unspecified atrial flutter; R06.00 Dyspnea, unspecified; R00.2 Palpitations; Z88.1 Allergy status to other antibiotic agents
CPT/HCPCS: 36415; 71045; 80048; 80076; 83735; 83880; 84443; 84484; 85025; 93005; 99285